=== PATIENT | male | born 1965 | race Caucasian/White ===

== ENCOUNTER 2017-03-02 11:41 | Emergency (ER) | payer OTHER ==
[2017-03-02] MEDS ORDERED: IOPAMIDOL (ISOVUE-300) 100 ML BTL ONE ×2 (13:35)
--- NOTE | 2017-03-02 13:37 | EDPHY ---
H & P Stated Complaint: Hx infected tooth;has facial swelling/redness since 02/28;on antibx - Personal History Current Tetanus Diphtheria and Acellular Pertussis (TDAP): Yes - Medical/Surgical History Other PMH: liver transplant 8 yrs ago - Social History Smoking Status: Current every day smoker Time Seen by Provider: 03/02/17 13:23 HPI/ROS: CHIEF COMPLAINT: Left facial swelling HISTORY OF PRESENT ILLNESS: 51-year-old male history of poor dentition, history of liver transplant years ago currently on post transplant medications, complaining of left facial swelling for the past 3 days. Was seen by his dentist this morning and told to go to the ER for evaluation of deep space infection. No fever no chills. No nausea no vomiting. No flu-like symptoms. No trismus or drooling. No headache. No neck pain or stiffness. REVIEW OF SYSTEMS: A ten point review of systems was performed and is negative with the exception of the items mentioned in the HPI PAST MEDICAL & SURGICAL HISTORY: Liver transplant years ago currently on anti- rejection medications SOCIAL HISTORY: nonsmoker PHYSICAL EXAM (Prior to examination, patient consented to physical exam, hands were washed and my usual and customary physical exam procedures followed) 1) GENERAL: Well-developed, well-nourished, alert and oriented. Appears to be in no acute distress. 2) HEAD: Normocephalic, atraumatic 3) HEENT: Pupils equal, round, reactive to light bilaterally. Sclera anicteric. Oropharynx: Poor dentition, tender to percussion left maxillary molars. Left facial swelling asymmetry noted with blunting of the nasolabial fold on the left side. No facial lesions or vesicles. Floor of mouth is soft with no evidence of Santino's angina. 4) NECK: Full range of motion, no meningeal signs. No submental or submandibular adenopathy, tenderness, induration. 5) LUNGS: Clear auscultation bilaterally, no wheezes, no rhonchi, no retractions. 6) HEART: Regular rate and rhythm, no murmur, no heave, no gallop. 7) ABDOMEN: No guarding, no rebound, no focal tenderness, 8) MUSCULOSKELETAL: Moving all extremities, no focal areas of tenderness, no obvious trauma. No peripheral edema or discoloration. 9) BACK: no visual or palpable abnormality. 10) SKIN: No rash, no petechiae. 11) Psychiatric: Patient is oriented X 3, there is no agitation. DIFFERENTIAL DIAGNOSIS: In no particular include but limited to dental abscess , facial abscess, cellulitis, zoster (Nathanael Martinez) Constitutional: Initial Vital Signs Temperature (C) 36.7 C 03/02/17 11:42 Heart Rate 86 03/02/17 11:42 Respiratory Rate 16 03/02/17 11:42 Blood Pressure 169/80 H 03/02/17 11:42 O2 Sat (%) 94 03/02/17 11:42 O2 Delivery Mode Room Air Allergies/Adverse Reactions: Penicillins Allergy (Intermediate, Verified 03/02/17 11:48) rash,throat feels swollen Home Medications: Medication Instructions Recorded AZITHROMYCIN [Z-PACK] 250 mg PO DAILY 03/02/17 Clindamycin HCl [Clindamycin] 300 mg PO TID 7 Days cap 03/02/17 FLUoxetine [PROzac] 10 mg PO 03/02/17 Mycophenolate Sodium [Myfortic] 360 mg PO 03/02/17 Tacrolimus Anhydrous [Prograf 0.5 0.5 mg PO 03/02/17 MG (*)] oxyCODONE HCL [Oxycodone HCl] 5 mg PO 03/02/17 Medical Decision Making Procedures: Procedure: Abscess drainage. The patient's abscess was located adjacent tooth 12.. Dental nerve block placed by myself of 0.5% bupivacaine without epinephrine. I obtained verbal consent from the patient to drain the abscess who was informed about the possibility of bleeding and pain. The abscess was incised with a 11. Scalpel and a mild amount of purulent drainage was expressed. The patient tolerated the procedure well. The procedure was performed by myself. (Nathanael Martinez) ED Course/Re-evaluation: 1:36 p.m.: CT maxillofacial with IV contrast will be ordered on this patient for indication facial swelling in presence of immunosuppressed patient. Care of patient under supervision of secondary supervising physician Dr Alberto with whom I discussed case 3:30 p.m.: Patient was re-evaluated with serial examinations, his dental abscess was incised and drained, see note. He is started on clindamycin. Recommend he follow up with his dentist either today or tomorrow. No evidence of deep space infection. He feels comfortable being discharged. Doubt sepsis. (Nathanael Martinez) Other Provider: The patient was evaluated and managed by the Physician Technical Sales Consultant/ Nurse Practitioner. I discussed the patient's presentation and course with the midlevel provider with them and agree with the evaluation. My co-signature indicates that I have reviewed this chart and I agree with the findings and plan of care as documented. I am the secondary supervising physician. (Sammi Alberto) - Data Points Laboratory Results: Laboratory Results 03/02/17 13:40 03/02/17 13:40 Medications Given: Discontinued Medications Clindamycin (Clindamycin) 300 mg PO EDNOW ONE PRN Reason: Protocol Stop: 03/02/17 15:05 Last Admin: 03/02/17 15:42 Dose: 300 mg Departure - Departure Disposition: Home, Routine, Self-Care Clinical Impression: Dental abscess Condition: Good Instructions: Clindamycin (By mouth), Dental Abscess (ED) Additional Instructions: Return to the ER immediately if you cannot swallow, have drooling, fevers, neck stiffness, cannot open your jaw, or any other symptoms that concern you. Referrals: Follow-up, with your dentist tomorrow [Other] - As per Instructions Prescriptions: Clindamycin HCl [Clindamycin] 300 mg PO TID 7 Days cap
[2017-03-02 13:52] LABS: PLATELET COUNT 168 10^3/uL (150-400)
[2017-03-02] MEDS ORDERED: CLINDAMYCIN 150 MG CAP PO ONE ×2 (15:04)
[2017-03-02 15:58] VITALS: BP 113/71; PULSE 83; RESP 18; TEMP 98.2; O2SAT 90
== END 2017-03-02 15:58 | disposition home or self-care (01) ==
PROC: 0C950ZZ Drainage of Upper Gingiva, Open Approach (ICD-10-PCS; principal; 2017-03-02)
DX: K04.7 Periapical abscess without sinus (principal); F17.200 Nicotine dependence, unspecified, uncomplicated
CPT/HCPCS: 41800; 70487; 99285; Q9967; 82947-QW